=== PATIENT | male | born 1985 | race Caucasian/White ===

== ENCOUNTER 2019-01-14 08:04 | Emergency (ER) | payer OTHER ==
[~2019-01-14] VITALS: Ht 170.2 cm; Wt 69.1 kg
[2019-01-14 08:58] LABS: BASOPHIL % 0.6 % (0-2); PLATELET COUNT 188 x10^3mcL (130-400); RED CELL DISTRIBUTION WIDTH 14.2 % (11.5-14.5)
[2019-01-14 09:01] LABS: CALCIUM 8.7 mg/dL (8.5-10.1); CARBON DIOXIDE 30.2 mmol/L (21-32); CHLORIDE SERUM 106 mmol/L (98-107); GFR1 > 60 mL/min; GLUCOSE SERUM 107 mg/dL (74-106); POTASSIUM SERUM 4.3 mmol/L (3.5-5.1); SODIUM SERUM 139 mmol/L (136-145)
[2019-01-14 09:06] LABS: ALBUMIN 3.1 g/dL (3.4-5.0); ALKALINE PHOSPHATASE 48 U/L (46-116); ALT/SGPT 21 U/L (16-63); AST/SGOT 17 U/L (15-37); BILIRUBIN TOTAL 0.3 mg/dL (0.20-1.00); TOTAL PROTEIN, SERUM 6.2 g/dL (6.4-8.2)
== END 2019-01-14 09:29 | disposition home or self-care (01) ==
LOC: ED 08:04
PROVIDERS: Emergency Medicine
DX: R42 Dizziness and giddiness (principal); D64.9 Anemia, unspecified; F31.9 Bipolar disorder, unspecified; Z90.89 Acquired absence of other organs; F20.9 Schizophrenia, unspecified
CPT/HCPCS: 36415; J7030

== ENCOUNTER 2020-02-14 11:59 | Emergency (ER) | payer OTHER ==
[~2020-02-14] VITALS: Ht 170.2 cm; Wt 66.7 kg
[2020-02-14 12:12] VITALS: Ht 170.2 cm; Wt 66.7 kg
[2020-02-14 12:55] VITALS: BP 117/70
== END 2020-02-14 12:54 | disposition home or self-care (01) ==
LOC: ED 11:59
DX: G44.209 Tension-type headache, unspecified, not intractable (principal); R06.02 Shortness of breath; Z90.89 Acquired absence of other organs

== ENCOUNTER 2020-02-29 06:34 | Emergency (ER) | payer OTHER, SELFPAY ==
[~2020-02-29] VITALS: Ht 170.2 cm; Wt 68.0 kg
[2020-02-29 06:42] VITALS: Ht 170.2 cm; Wt 68.0 kg
[2020-02-29 08:29] LABS: CALCIUM 9.5 mg/dL (8.5-10.1); CHLORIDE SERUM 106 mmol/L (98-107); CREATININE SERUM 0.9 mg/dL (0.7-1.3); GFR1 > 60 mL/min; GLUCOSE SERUM 102 mg/dL (74-106); POTASSIUM SERUM 4.7 mmol/L (3.5-5.1); SODIUM SERUM 142 mmol/L (136-145)
[2020-02-29 08:33] LABS: ALBUMIN 3.8 g/dL (3.4-5.0); ALKALINE PHOSPHATASE 66 U/L (46-116); ALT/SGPT 28 U/L (16-63); AST/SGOT 18 U/L (15-37); BILIRUBIN TOTAL 0.2 mg/dL (0.20-1.00)
[2020-02-29 08:36] LABS: BASOPHIL % 0.8 % (0-2); PLATELET COUNT 189 x10^3mcL (130-400); RED CELL DISTRIBUTION WIDTH 14.1 % (11.5-14.5)
[2020-02-29 08:42] LABS: C REACTIVE PROTEIN < 0.2 mg/dL (<=0.9)
[2020-02-29 09:37] VITALS: BP 116/78
== END 2020-02-29 09:35 | disposition home or self-care (01) ==
LOC: ED 06:34
PROVIDERS: Specialist
DX: R06.02 Shortness of breath (principal); Z90.89 Acquired absence of other organs
CPT/HCPCS: 36415; 83880; Q0092

== ENCOUNTER 2021-01-24 20:43 | Inpatient (IN) | payer OTHER ==
[~2021-01-24] VITALS: Ht 170.2 cm; Wt 75.1 kg
[2021-01-24 21:03] VITALS: Ht 170.2 cm; Wt 75.1 kg
[2021-01-24 22:01] LABS: UA SPECIFIC GRAVITY 1.015 (1.005-1.035); microscopic required? YES; urine erythrocyte 3+ (NEGATIVE)
[2021-01-24 22:23] LABS: CALCIUM 8.3 mg/dL (8.5-10.1); CARBON DIOXIDE 28.4 mmol/L (21-32); CHLORIDE SERUM 103 mmol/L (98-107); CREATININE SERUM 0.8 mg/dL (0.7-1.3); GFR1 > 60 mL/min; GLUCOSE SERUM 92 mg/dL (74-106); POTASSIUM SERUM 4.2 mmol/L (3.5-5.1); SODIUM SERUM 141 mmol/L (136-145)
[2021-01-24 22:27] LABS: BASOPHIL % 0.9 % (0.2-1.5); PLATELET COUNT 197 x10^3mcL (152-348); RED CELL DISTRIBUTION WIDTH 13.2 % (12.1-16.2)
[2021-01-24 22:32] LABS: ALKALINE PHOSPHATASE 63 U/L (46-116); ALT/SGPT 367 U/L (16-63); BILIRUBIN TOTAL 0.3 mg/dL (0.20-1.00)
[2021-01-24 22:33] LABS: ALBUMIN 3.1 g/dL (3.4-5.0); AST/SGOT 2003 U/L (15-37); TOTAL PROTEIN, SERUM 6.1 g/dL (6.4-8.2)
[2021-01-25] MEDS ORDERED: FEXMID7.5 M1 PO (02:40)
[2021-01-25] MEDS ORDERED: AUGMENTIN XR 11 EACH PO (02:40)
[2021-01-25] MEDS ORDERED: GRALISE600 MG PO (02:40)
[2021-01-25] MEDS ORDERED: QUETIAPINE FUMA25 M1 PO (02:41)
[2021-01-25] MEDS ORDERED: DEPAKOTE125 MG PO (02:41)
[2021-01-25 04:27] VITALS: BP 118/65
[2021-01-25 07:53] VITALS: BP 112/68
[2021-01-25] MEDS ORDERED: DIVALPROEX SOD500 M3 PO (11:07)
[2021-01-25] MEDS ORDERED: DEPAKOTE500 MG PO (11:09)
[2021-01-25] MEDS ORDERED: QUETIAPINE FUM300 M1 PO (11:14)
[2021-01-25] MEDS ORDERED: NEURONTIN300 MG PO (11:18)
[2021-01-25] MEDS ORDERED: AUGMENTIN1 TA1 PO (11:41)
[2021-01-25 12:30] VITALS: BP 115/56
[2021-01-25 14:09] LABS: CALCIUM 8.9 mg/dL (8.5-10.1); CARBON DIOXIDE 32.3 mmol/L (21-32); CHLORIDE SERUM 106 mmol/L (98-107); CREATININE SERUM 0.8 mg/dL (0.7-1.3); GFR1 > 60 mL/min; GLUCOSE SERUM 96 mg/dL (74-106); POTASSIUM SERUM 4.4 mmol/L (3.5-5.1); SODIUM SERUM 144 mmol/L (136-145)
[2021-01-25 14:14] LABS: BASOPHIL % 2.1 % (0.2-1.5); PLATELET COUNT 209 x10^3mcL (152-348); RED CELL DISTRIBUTION WIDTH 13.5 % (12.1-16.2)
[2021-01-25 14:24] LABS: ALKALINE PHOSPHATASE 48 U/L (46-116); ALT/SGPT 386 U/L (16-63); BILIRUBIN TOTAL 0.3 mg/dL (0.20-1.00)
[2021-01-25 14:31] LABS: AST/SGOT 1762 U/L (15-37); TOTAL PROTEIN, SERUM 6.1 g/dL (6.4-8.2)
[2021-01-25 15:50] VITALS: BP 109/60
[2021-01-25 20:08] VITALS: BP 127/72
[2021-01-26 06:00] VITALS: BP 109/62
[2021-01-26 07:35] LABS: ALKALINE PHOSPHATASE 50 U/L (46-116); ALT/SGPT 343 U/L (16-63); BILIRUBIN TOTAL 0.49 mg/dL (0.20-1.00); CALCIUM 8.5 mg/dL (8.5-10.1); CHLORIDE SERUM 106 mmol/L (98-107); CREATININE SERUM 0.9 mg/dL (0.7-1.3); GFR1 > 60 mL/min; GLUCOSE SERUM 122 mg/dL (74-106); MAGNESIUM 1.7 mg/dL (1.8-2.4); POTASSIUM SERUM 3.8 mmol/L (3.5-5.1); SODIUM SERUM 141 mmol/L (136-145)
[2021-01-26 07:38] LABS: BASOPHIL % 0.7 % (0.2-1.5); PLATELET COUNT 194 x10^3mcL (152-348); RED CELL DISTRIBUTION WIDTH 13.6 % (12.1-16.2)
[2021-01-26 07:40] LABS: ALBUMIN 2.9 g/dL (3.4-5.0); AST/SGOT 1314 U/L (15-37)
[2021-01-26 08:05] VITALS: BP 109/67
[2021-01-26 12:11] VITALS: BP 122/78
[2021-01-26 13:57] VITALS: BP 122/78
[2021-01-26 16:58] VITALS: BP 121/64
== END 2021-01-26 17:28 | disposition home or self-care (01) | DRG 557 ==
LOC: ED 20:43 → DU 01-25 00:30
PROVIDERS: Emergency Medicine; ADMIT Internal Medicine; ATTEND Internal Medicine
DX: M62.82 Rhabdomyolysis (principal); U07.1 COVID-19; F20.9 Schizophrenia, unspecified; F31.9 Bipolar disorder, unspecified; Z90.49 Acquired absence of other specified parts of digestive tract; R31.9 Hematuria, unspecified
CPT/HCPCS: G0378; J1885; J3490; J7030; J7042; U0003